=== PATIENT | female | born 1995 | race African-American/Black ===

== ENCOUNTER 2018-08-15 05:59 | Inpatient (IN) | payer OTHER ==
[2018-08-13 17:16] VITALS: BMI 28.9
[2018-08-15] VITALS (21 sets, daily range): BP systolic 95–143; BP diastolic 54–88; PULSE 60–89; RESP 14–48; Ht 162.6 cm; Wt 74.6 kg
[~2018-08-15] VITALS: Ht 162.6 cm; Wt 74.6 kg
[~2018-08-15 05:59] MED LIST: IRON
[2018-08-15] MEDS ORDERED: FER325 PO (06:48)
[2018-08-15] MEDS ORDERED: CEFAZOLIN 1 GM INJ ONE (07:00)
[2018-08-15] MEDS ORDERED: SEVOFLURANE 15 MIN ONE (07:00)
--- NOTE | 2018-08-15 07:19 | PREAC ---
Date/Time of Note Date/Time of Note DATE: 08/15/18 TIME: 07:17 Anesthesia Eval and Record Evaluation Time Pre-Procedure Interview DATE: 08/15/18 TIME: 07:17 Age 22 Sex female NPO: 8 hrs Preoperative diagnosis ovarian cyst Planned procedure exploratory laparotomy, ovarian cystectomy, possible oophorectomy, IUD removal, frozen section Past Medical History Past Medical History: None Surgery & Anesthesia Issues No known issue Meds Anticoagulation: No Beta Shelley within 24 hr: No Reason Beta Shelley not given: Pt. not on B-Shelley Reported Medications Ferrous Sulfate* (Ferrous Sulfate*) 325 Mg Tabec, 325 MG PO DAILY, TAB 08/15/18 Discontinued Reported Medications [Iron] No Conflict Check 08/13/18 Meds reviewed: Yes Allergies Coded Allergies: No Known Allergy (Unverified , 08/15/18) Allergies Reviewed: Yes Labs/Studies Labs Reviewed: Reviewed by anesthesiologist test: Negative Pre-procedure Exam Last vitals Vital Signs Date Temp Pulse Resp B/P (MAP) Pulse Ox O2 O2 Flow FiO2 Time Delivery Rate 08/15/18 98.1 77 18 114/66 100 Room Air 07:11 (82) Airway: Adequate mouth opening, Adequate thyromental dist Mallampati: Mallampati II Teeth: Normal Lung: Normal Heart: Normal ASA Physical Status ASA physical status: 1 Emergency: None Planned Anesthetic General/MAC: ETT Planned Pain Management Parenteral pain med Pre-operative Attestations Prior to commencing anesthesia and surgery, the patient was re-evaluated, there was verification of: *The patient's identity *The results of appropriate recent lab work and preoperative vital signs *The above evaluation not changing prior to induction *Anesthetic plan, risk benefits, alternative and complications discussed with patient/family; questions answered; patient/family understands, accepts and wishes to proceed. MIO WILDE MD Aug 15, 2018 07:19
[2018-08-15] MEDS ORDERED: LIDOCAINE 2% (SDV) 5 ML INJ ONE (07:27)
[2018-08-15] MEDS ORDERED: ROCURONIUM 50 MG INJ ONE (07:27)
[2018-08-15] MEDS ORDERED: PROPOFOL 20 ML ONE ×2 (07:27→07:40)
[2018-08-15] MEDS ORDERED: SUCCINYLCHOLINE CHLORIDE 100 MG/5 ML SYG IV ONE (07:27)
[2018-08-15] MEDS ORDERED: MIDAZOLAM 1 MG/ML 2 ML INJ ONE (07:30)
[2018-08-15] MEDS ORDERED: FENTAnyl 50 MCG/ML VIAL ONE (07:30)
[2018-08-15] MEDS ORDERED: FAMOTIDINE 20 MG INJ ONE (07:43)
[2018-08-15] MEDS ORDERED: DEXAMETHASONE 4 MG/ML 5 ML INJ ONE (07:43)
[2018-08-15] MEDS ORDERED: ONDANSETRON 4 MG INJ ONE (07:43)
[2018-08-15] MEDS ORDERED: HYDROmorphONE 2 MG/ML SYG ONE (08:19)
[2018-08-15] MEDS ORDERED: NALOXONE (0.4 MG/ML) INJ IV PRN (08:30)
[2018-08-15] MEDS ORDERED: FENTAnyl 50 MCG/ML VIAL IV PRN ×3 (08:30)
[2018-08-15] MEDS ORDERED: HYDROmorphONE 1 MG/5 ML IV SYRINGE IV PRN ×3 (08:30)
[2018-08-15] MEDS ORDERED: HYDROmorphONE 0.2 MG/ML PCA IV SCH ×2 (08:30→17:30)
[2018-08-15] MEDS ORDERED: DIPHENHYDRAMINE 50 MG INJ IV PRN ×2 (08:30)
[2018-08-15] MEDS ORDERED: MEPERIDINE 25 MG INJ IV PRN (08:30)
[2018-08-15] MEDS ORDERED: KETOROLAC 30 MG INJ IV PRN (08:30)
[2018-08-15] MEDS ORDERED: PROCHLORPERAZINE 10 MG INJ IV PRN (08:30)
[2018-08-15] MEDS ORDERED: HYDROmorphONE 0.5 MG/0.5 ML SYG IV PRN ×2 (08:30)
[2018-08-15] MEDS ORDERED: ONDANSETRON 4 MG INJ IV PRN ×3 (08:30→09:30)
[2018-08-15] MEDS ORDERED: KETOROLAC 30 MG INJ ONE (08:42)
[2018-08-15] MEDS ORDERED: ROPIVACAINE 0.5 % 30 ML VIAL ONE (08:49)
[2018-08-15] MEDS ORDERED: GLYCOPYRROLATE 0.4 MG INJ ONE ×2 (09:01)
[2018-08-15] MEDS ORDERED: NEOSTIGMINE 3 MG/3 ML SYRINGE ONE ×2 (09:01)
--- NOTE | 2018-08-15 09:17 | SIPON ---
Date/Time of Note Date/Time of Note DATE: 08/15/18 TIME: 09:14 Operative Report Preoperative Diagnosis RIGHT OVARIAN CYST PELVIC PAIN MISPLACED IUD Postoperative Diagnosis RIGHT AND LEFT OVARIAN CYST PELVIC PAIN MISPLACED IUD PCO Operation/Procedure Performed EXPLORATORY LAPAROTOMY IUD REMOVAL BILATERAL OVARIAN CYSTECTOMY DRILLING OF BOTH OVARIES Surgeon see signature line business services assistant DR WARE Anesthesia: general Estimated blood loss: 50 - 100 ml's Transfusion Required none Specimen RIGHT AND LEFT OVARIAN CYST DERMOID CYST IUD PARAGARD Grafts/Implants none Complications none GARRISON STUART MD Aug 15, 2018 09:17
--- NOTE | 2018-08-15 09:23 | PAC ---
Date/Time of Note Date/Time of Note DATE: 08/15/18 TIME: 09:23 Post-Anesthesia Notes Post-Anesthesia Note Last documented vital signs Vital Signs Date Temp Pulse Resp B/P (MAP) Pulse Ox O2 O2 Flow FiO2 Time Delivery Rate 08/15/18 98.1 77 18 114/66 100 Room Air 07:11 (82) Activity: WNL Respiratory function: WNL Cardiovascular function: WNL Mental status: Baseline Pain reasonably controlled: Yes Hydration appropriate: Yes Nausea/Vomiting absent: Yes Comments BP: 138/83 HR: 90 RR: 15 T: 98 SaO2: 100% MIO WILDE MD Aug 15, 2018 09:23
--- NOTE | 2018-08-15 09:29 | PREOPHP ---
DATE OF ADMISSION: 08/15/2018 HISTORY OF PRESENT ILLNESS: This is a 22-year-old lady, 0. Her last normal menstrual period was a few days prior to admission. She was admitted for a dilation and curettage, hysteroscopy, IUD removal, exploratory laparotomy, ovarian cystectomy, possible oophorectomy. This patient is known t o have a 15 x 15 cm cyst on the right ovary and she is having chronic pelvic pain. She also has an I UD that could not be removed in the clinic, so she wanted the IUD to be removed. The procedures were explained to the patient and she understood everything totally. The risks, benefits and alternative s were discussed with her as well. PAST PERSONAL HISTORY: No history of diabetes, tuberculosis, asthma. ALLERGIES: NONE. SOCIAL HISTORY: The patient does not smoke. She does not drink. She does not take any drugs. GYNECOLOGIC HISTORY: She had menarche at the age of 10, every 28 days interval, 3 to 4 days' duratio n, and moderate in amount. She is 0. FAMILY HISTORY: Uncle and grandmother on mother's side have high blood pressure and diabetes. REVIEW OF SYSTEMS: CARDIOVASCULAR: No chest pains. RESPIRATORY: No cough. GASTROINTESTINAL: No diarrhea, no vomiting. GENITOURINARY: No dysuria. PHYSICAL EXAMINATION: GENERAL: Reveals a conscious, coherent lady and in no acute distress. VITAL SIGNS: Her blood pressure 120/80, pulse rate 80 per minute, respirations 16 per minute. BREASTS, HEART AND LUNGS: Within normal limits. ABDOMEN: Soft. No organomegaly. PELVIC: Revealed the cervix to be firm and pelvic mass about size of 15 cm was noted. RECTAL: Confirmed the pelvic findings. EXTREMITIES: No pedal edema. IUD strings could not be visualized. ADMITTING DIAGNOSES: Misplaced IUD and right ovarian cyst, possible endometriosis and chronic pelvic pain. PLAN: The patient was planned to have dilation and curettage, hysteroscopy, IUD removal, exploratory laparotomy, ovarian cystectomy, possible oophorectomy, frozen section. Procedures were explained to the patient and she understood everything totally. The risks, benefits and alternatives were discus sed with her as well. Dictated By: GARRISON KAUR/ELZA Conf#: [id number] DID#: [id number] CC: GARRISON STUART MD;*[facility]*
[2018-08-15] MEDS: LACTATED RINGER'S 1,000 ML IV SCH ×2 (12:25→18:28)
[2018-08-15] MEDS ORDERED: KETOROLAC 30 MG INJ IV SCH (15:00)
--- NOTE | 2018-08-15 15:14 | OPR ---
DATE OF OPERATION: 08/15/2018 PREOPERATIVE DIAGNOSES: 1. Misplaced intrauterine device. 2. Right ovarian cyst. 3. Chronic pelvic pain. POSTOPERATIVE DIAGNOSES: 1. Misplaced intrauterine device. 2. Right ovarian cyst. 3. Chronic pelvic pain. 4. Polycystic ovaries. SURGEON: Marylin Cardenas MD GREASE MAKER: Dr. Muse. ANESTHESIA: General. OPERATION PERFORMED: IUD removal. Pelvic exam under anesthesia and exploratory laparotomy, right ov valente cystectomy, left ovarian cystectomy and drilling of both ovaries. OPERATIVE TECHNIQUE: Under general anesthesia, the patient was prepped and draped in the usual fashi on for vaginal surgery. Pelvic exam under anesthesia revealed the cervix to be firm, and uterus coul d not be properly delineated. There is a huge pelvic mass noted measuring up to about 20 cm. Then, the heavy weight vaginal retractor was put in place and the anterior lip of the cervix was grasped wi th an Allis clamp. The long Barb was inserted in the endocervical canal and grasped the IUD string and with good grasping, the IUD was removed. Paragard was noted and it was removed and intact and pi cture was taken. The patient's legs were put down and the patient was prepped and draped in the usua l fashion for abdominal surgery. Then, a Pfannenstiel incision about 14 cm skin incision was perform ed. The incision was carried from the skin up to the fascia. Upon opening the skin up to the fascia , small blood vessels were noted to be oozing and these were all cauterized. Fascia was opened trans versely followed by splitting the muscles vertical and the peritoneum vertically. Then, the muscles on the lower abdomen were cut transversely for pelvic mass to be taken out from the pelvis. Then the pelvic mass was taken out from the pelvis. Then it was noted to be the right ovary measuring about 20 x 20 cm. Picture was taken. Then the left ovary was noted to be about 4 cm with a small cyst as well. Then the serosa of the ovary, incision was performed at the serosa of the ovary above the cyst . When the cyst was almost usp , the cyst ruptured. Clear yellowish fluid was noted. Then 20 mL of fluid was sent to pathology and the ovarian cyst was from the normal ovary by sharp and blunt dissection. The base of the cyst was noted to have hair. So this was a dermoid cys t and confirmed by the pathologist. Pathologist came and said that this was a benign dermoid cyst, s o that the remaining ovarian tissue was sutured with a pursestring suture, about 10 layers were put i n. There was no bleeding noted at the remaining ovarian tissue. The base of this ovary as well had a small tiny cyst, polycystic ovaries were noted and these were tiny cysts were drilled. Then, the u terus was noted to be of normal size. The left ovary; there was a 4 cm cyst and it was enucleated. The remaining ovarian tissue was cauterized. Bleeders were checked, and there was no bleeding noted. Multiple follicular cysts were noted. Polycystic ovary was noted on the left ovary. Drilling of t he left ovary was done. The back of the uterus was checked for any endometriosis and there was none noted. Both of the ovaries were noted to have no bleeding. Both tubes were also noted to be healthy looking. Both fimbria were identified. Irrigation was done with about 200 mL of normal saline. Af ter irrigation both ovaries were checked for any bleeders and there was no bleeding noted. Then, the uterus was put back to the pelvic cavity. Once again, both ovaries were checked for any bleeders an d there was no bleeding noted. After correct sponge count, needle count, and instrument count, both the muscle and peritoneum on both sides of the lower abdomen were closed by continuous suture. Then, the peritoneum was closed with continuous suture with 0 Vicryl. Bleeders were checked, and there wa s no bleeding noted. Then this was done after correct sponge count, needle count and instrument coun t as confirmed by the boiler technician and stock dealer, then the fascia was closed with continuous suture fo llowed by few [id number] sutures for the subcutaneous tissue. It was closed with 3-0 Vicryl and the skin was closed with 3-0 Vicryl, subcuticular suture was used. The patient tolerated the proced ure well. Estimated blood loss was about 100 mL. Vital signs were stable during and after the proce dure. Dictated By: MARYLIN CARDENAS MD NS/NTS Conf#: [id number] DID#: [id number] CC: MARYLIN CARDENAS MD;*End[facility]*
[2018-08-16] MEDS: LACTATED RINGER'S 1,000 ML IV SCH ×3 (02:53→18:25)
[2018-08-16] MEDS ORDERED: MAGNESIUM HYDROXIDE 30ML CUP PO ONE ×2 (06:00→17:00)
[2018-08-16] MEDS ORDERED: HYDROCODONE/APAP (5/325) TAB PO PRN ×3 (06:00→09:30)
[2018-08-16] MEDS ORDERED: BISACODYL 10 MG SUPP PR ONE ×2 (06:00→17:00)
[2018-08-16] MEDS: HYDROCODONE/APAP (5/325) TAB PO PRN (06:14)
[2018-08-16 07:49] VITALS: BP 109/57; PULSE 64; RESP 18
[2018-08-16] MEDS: IBUPROFEN 800 MG TAB PO PRN ×2 (09:16→15:38)
[2018-08-16 19:25] VITALS: BP 117/68; PULSE 87; RESP 18
--- NOTE | 2018-08-16 21:28 | PN ---
DATE: 08/16/2018 TIME: 5:30 p.m. SUBJECTIVE: The patient feels good complaining moderate incisional pain. She had good bowel movemen t and she had good gas per rectum. OBJECTIVE: VITAL SIGNS: She is afebrile. CHEST: Lungs clear. HEART: Normal sinus rhythm. ABDOMEN: Soft. Wound dry and clean. No distention. EXTREMITIES: No calf tenderness. ASSESSMENT: Postop day #1. PLAN: CBC tomorrow. Discontinue IV in the morning. Advance diet as tolerated. She will go home to [place]. The patient is counseled. She was instructed. A prescription was given to her for pain. Dictated By: GARRISON KAUR/ELZA Conf#: [id number] DID#: [id number]
[2018-08-17] MEDS: LACTATED RINGER'S 1,000 ML IV SCH ×2 (01:46→04:00)
[2018-08-17 02:32] VITALS: BP 127/84; PULSE 69; RESP 18
[2018-08-17] MEDS: HYDROCODONE/APAP (5/325) TAB PO PRN (04:58)
[2018-08-17 07:37] VITALS: BP 115/68; PULSE 72; RESP 19
[2018-08-17] MEDS: IBUPROFEN 800 MG TAB PO PRN (13:05)
[2018-08-17 15:02] VITALS: BP 121/62; PULSE 82; RESP 19
== END 2018-08-17 15:30 | disposition home or self-care (01) | DRG 675 ==
LOC: REC 05:59 → EDSTATUS 07:30 → MS1 10:07
PROVIDERS: ADMIT Obstetrics & Gynecology; ATTEND Obstetrics & Gynecology
PROC: 0UB20ZZ Excision of Bilateral Ovaries, Open Approach (ICD-10-PCS; 2018-08-15)
PROC: 0UPD7HZ Removal of Contraceptive Device from Uterus and Cervix, Via Natural or Artificial Opening (ICD-10-PCS; principal; 2018-08-15 07:30)
PROC: 0WJJ0ZZ Inspection of Pelvic Cavity, Open Approach (ICD-10-PCS; 2018-08-15 07:30)
DX: T83.9XXA Unspecified complication of genitourinary prosthetic device, implant and graft, initial encounter (principal); E28.2 Polycystic ovarian syndrome; D27.0 Benign neoplasm of right ovary; N80.9 Endometriosis, unspecified; D27.1 Benign neoplasm of left ovary
CPT/HCPCS: 80053; 84702; 84703; 85025; 86850; 86900; 86901; 87086; 88300; 88305; 88307; J0690; J1100; J1170; J1885; J2175; J2250; J2405; J2710; J2795; J3010; J7120